=== PATIENT | female | born 2000 | race Hispanic/Latino ===

== ENCOUNTER 2019-01-30 08:59 | Outpatient (CLI) | payer OTHER ==
--- NOTE | 2019-01-30 12:11 | ULT ---
OB ULTRASOUND: HISTORY: Size and dates. FINDINGS: There is a viable intrauterine . Gestational age by ultrasound is 20 weeks 4 days. BPD: 20 weeks 3 days HC: 20 weeks 2 days AC: 20 weeks 5 days FL: 21 weeks 0 days EFW: 373 g (20 weeks 6 days) HEART RATE: 152 PLACENTA: Anterior. PRESENTATION: Breech. AMNIOTIC FLUID: Adequate. ALPA recorded at 12 cm. The cervix is closed with cervical length recorded at 6.4 cm. anatomy evaluated including intracranial contents, four chamber heart, stomach, kidneys, cord i nsertion, bladder, spine, lips, nose, extremities and three vessel cord, all imaged and no abnormalit y identified. IMPRESSION: A 11-oryk-7-day gestation by ultrasound. POS: OFF
== END 2019-01-30 09:00 | disposition home or self-care (01) ==
LOC: NAV ULT 08:59
PROVIDERS: ATTEND Family Medicine
DX: Z34.82 Encounter for supervision of other normal pregnancy, second trimester (principal); Z3A.20 20 weeks gestation of pregnancy
CPT/HCPCS: 76805